=== PATIENT | male | born 1935 | race Caucasian/White ===

== ENCOUNTER 2017-10-06 02:31 | Emergency (ER) | payer MEDICARE ==
[~2017-10-06] VITALS: Ht 175.3 cm; Wt 91.8 kg
[~2017-10-06 02:31] MED LIST: ALTACE5 M1 OR; AMIODARONE200 MG OR; BABY ASPIRIN81 MG OR; CEFEPIME1 G1 IJ; CEPHALEXIN500 MG PO; CIPROFLOXACN500 MG OR; COREG3.125 MG OR; COREG6.25 MG PO; COUMADIN2.5 MG OR; COUMADIN2.5 MG PO; COUMADIN5 M1 PO; COUMADIN5 MG OR; FLOMAX0.4 M1 OR; HEPARIN10 UNITS/M IV; LASIX 40 MG TAB40 MG PO; LASIX40 MG OR; NORMAL SALIN0.9 % IV; PRAVASTATIN20 MG PO; SIMVASTATIN40 MG OR; VITAMIN D2000 UNI1 PO; WARFARIN2.5 MG OR; WARFARIN5 MG OR; ZOCOR20 MG PO; [UNRECOGNIZED DRUG - OTHER] IV
[2017-10-06] MEDS ORDERED: ENTRESTO 24-261 TAB PO (03:29)
[2017-10-06] MEDS ORDERED: ALLOPURINOL100 MG PO (03:30)
[2017-10-06 04:02] LABS: HEMATOCRIT 44.2 % (39.0-50.0); HEMOGLOBIN 14.5 g/dl (14.0-18.0); IMMATURE GRANULOCYTES 0.5 % (0.0-1.0); MEAN CELL VOLUME 93.8 fL CALC (80.0-100.0); MEAN CORPUSCULAR HGB 30.8 pG CALC (26.0-32.0); MEAN CORPUSCULAR HGB CONC 32.8 g/L CALC (32.0-36.0); RED BLOOD COUNT 4.71 mill/uL (4.70-6.10); RED CELL DISTRI WIDTH 14.3 % (11.5-15.5)
[2017-10-06 04:16] LABS: ALBUMIN 4.2 g/dL (3.2-5.0); BILIRUBIN, TOTAL 0.8 mg/dL (0.0-1.4); CALCIUM 9.6 mg/dL (8.4-10.2); CREATININE 1.4 mg/dL (0.7-1.3); POTASSIUM 4.2 mmol/l (3.5-5.1); TOTAL PROTEIN 6.5 g/dL (6.3-8.2)
[2017-10-06 04:21] LABS: ACT PARTIAL THROMBO TIME 39.6 SECONDS (20.0-32.5); INTERNATIONAL NORMALIZED RATIO 2.5 RATIO (0.7-1.3); PROTHROMBIN TIME 28.5 SECONDS (9.0-12.5)
[2017-10-06 05:00] VITALS: BP 125/63
[2017-10-06 06:04] LABS: URINE BILIRUBIN - DIPSTICK NEGATIVE (NEGATIVE); URINE BLOOD DIPSTICK NEGATIVE (NEGATIVE); URINE COLOR YELLOW; URINE GLUCOSE - DIPSTICK NEGATIVE (NEGATIVE); URINE KETONE NEGATIVE (NEGATIVE); URINE LEUK ESTERASE NEGATIVE (NEGATIVE); URINE NITRITE - DIPSTICK NEGATIVE (Negative); URINE PH 5.5 (4.5-8.0); URINE PROTEIN - DIPSTICK NEGATIVE (NEG-TRACE); URINE UROBILINOGEN - DIPSTICK 0.2 E.U./dL (0.2)
[2017-10-06 06:06] LABS: URINE CLARITY CLEAR
== END 2017-10-06 05:00 | disposition home or self-care (01) ==
LOC: ED 02:31
PROVIDERS: Emergency Medicine
DX: R07.89 Other chest pain (principal); I11.0 Hypertensive heart disease with heart failure; I50.9 Heart failure, unspecified; Z95.1 Presence of aortocoronary bypass graft; Z95.810 Presence of automatic (implantable) cardiac defibrillator

== ENCOUNTER 2018-06-04 09:58 | Emergency (ER) | payer MEDICARE ==
[~2018-06-04] VITALS: Ht 175.3 cm; Wt 92.7 kg
[~2018-06-04 09:58] MED LIST changes: +ALLOPURINOL100 MG PO; +ASPIRINCHW 81MG PO; -BABY ASPIRIN81 MG OR; +ENTRESTO 24-261 TAB PO
[2018-06-04] MEDS ORDERED: KEFLEX500 M1 PO (10:31)
[2018-06-04 10:50] VITALS: BP 107/53
[2018-06-05] MEDS ORDERED: ENTRESTO 24-261 TAB PO (20:48)
== END 2018-06-04 10:50 | disposition home or self-care (01) ==
LOC: ED 09:58
DX: S60.351A Superficial foreign body of right thumb, initial encounter (principal); W26.8XXA Contact with other sharp object(s), not elsewhere classified, initial encounter; Y93.89 Activity, other specified; Y92.009 Unspecified place in unspecified non-institutional (private) residence as the place of occurrence of the external cause

== ENCOUNTER 2018-06-05 19:14 | Inpatient (IN) | payer MEDICARE ==
[~2018-06-05] VITALS: Ht 172.7 cm; Wt 93.6 kg
[~2018-06-05 19:14] MED LIST changes: +KEFLEX500 M1 PO
--- NOTE | 2018-06-05 19:14 | NUR ---
PT TO ROOM VIA W/C. TRIAGED AT BEDSIDE.
[2018-06-05 19:38] LABS: HEMATOCRIT 47.1 % (39.0-50.0); HEMOGLOBIN 15.5 g/dl (14.0-18.0); IMMATURE GRANULOCYTES 0.6 % (0.0-5.0); MEAN CELL VOLUME 92.5 fL CALC (80.0-100.0); MEAN CORPUSCULAR HGB 30.5 pG CALC (26.0-32.0); MEAN CORPUSCULAR HGB CONC 32.9 g/L CALC (32.0-36.0); NEUT# 16.51 thou/uL (1.82-7.42); RED BLOOD COUNT 5.09 mill/uL (4.70-6.10)
--- NOTE | 2018-06-05 19:41 | NUR ---
LAB HERE TO COLLECT 2ND BLOOD CULTURES
--- NOTE | 2018-06-05 19:42 | NUR ---
XRAY AT BEDSIDE
--- NOTE | 2018-06-05 19:43 | NUR ---
PT TO RADIOLOGY
[2018-06-05 19:51] LABS: URINE BILIRUBIN - DIPSTICK NEGATIVE (NEGATIVE); URINE BLOOD DIPSTICK MODERATE (NEGATIVE); URINE COLOR YELLOW; URINE GLUCOSE - DIPSTICK NEGATIVE (NEGATIVE); URINE KETONE NEGATIVE (NEGATIVE); URINE LEUK ESTERASE NEGATIVE (NEGATIVE); URINE NITRITE - DIPSTICK NEGATIVE (Negative); URINE PROTEIN - DIPSTICK 30 mg/dL (NEG-TRACE); URINE SPECIFIC GRAVITY 1.015; URINE UROBILINOGEN - DIPSTICK 0.2 E.U./dL (0.2)
[2018-06-05 19:51] LABS: BILIRUBIN, TOTAL 1.2 mg/dL (0.0-1.4); C-REACTIVE PROTEIN 2.2 mg/dL (0-0.9); CREATININE 1.4 mg/dL (0.7-1.3); POTASSIUM 4.2 mmol/l (3.5-5.1)
[2018-06-05 19:55] LABS: INTERNATIONAL NORMALIZED RATIO 2.6 RATIO (0.7-1.3); PROTHROMBIN TIME 29.1 SECONDS (9.0-12.5)
[2018-06-05 19:57] LABS: ALBUMIN 4.8 g/dL (3.2-5.0); TOTAL PROTEIN 8.1 g/dL (6.3-8.2)
--- NOTE | 2018-06-05 19:58 | NUR ---
RETURNED FROM XRAY
[2018-06-05 19:59] LABS: INFLUENZA A NONE DETECTED (NONE DETECT); INFLUENZA B NONE DETECTED (NONE DETECT)
[2018-06-05 19:59] LABS: URINE CLARITY SL CLOUDY
[2018-06-05 20:07] LABS: URINE BACTERIA FEW hpf; URINE MUCUS FEW hpf (NONE-FEW); URINE SQUAMOUS EPITHELIAL CELL MANY EPI/hpf (0-FEW)
--- NOTE | 2018-06-05 20:38 | NUR ---
REPORT TO JOSE DE JESUS/Mazin
[2018-06-05] MEDS ORDERED: ENTRESTO 24-261 TAB PO (20:48)
--- NOTE | 2018-06-05 20:51 | NUR ---
[facility]... HAD SOME UPDATES.
[2018-06-05 21:00] VITALS: BP 107/66
--- NOTE | 2018-06-05 21:00 | NUR ---
PT ARRIVED TO THE FLOOR VIA STRETCHER ACCOMPANIED BY ED NURSE AND FAMILY MEMBERS. PT DENIES ANY PAIN/N/V OR SOB AT THIS TIME. PT SELF AMBULATED W/STANDBY ASSISTANCE TO STANDING SCALE AND BED. V/S ASSESSED, TEMP IS 100.0 AT THIS TIME. ROOM COOLED AND ICE PACKS PROVIDED. POC DISCUSSED WITH PT AND FAMILY. WILL FOLLOW-UP WITH ASSESSMENT AND NOTIFY PHYSICIAN OF PT'S ARRIVAL TO FLOOR.
--- NOTE | 2018-06-05 21:05 | NUR ---
REPORT TO FLOOR VIA STRETCHER/MONITOR. ROCEPHIN INFUSING VIA PUMP. FAMILY X 3 AT BEDSIDE. BELONGINGS BAG TAKEN BY .
--- NOTE | 2018-06-05 22:00 | NUR ---
PT ASSESSED, LUNG SOUNDS ARE CLEAR, PT LOCX4, SMALL CUT ON LEFT THUMB PT STATES WAS FROM A FISHHOOK REMOVAL IN OUR ED YESTERDAY. NO NOTED EDEMA, REPORTS NORMAL BM TODAY AND DENIES DIFFICULTY URINATING. ABD IS SOFT/NON-TENDER WITH ACTIVE BOWEL SOUNDS, NEURO'S INTACT, PT REPORTS CATERACTS REMOVED. PT.ENCOURAGED TO CALL FOR ANY ASSISTANCE IF NEEDS TO AMBULATE, PO FLUIDS PROVIDED AND REINFORCEMENT TO CALL SYSTEM REVIEWED WITH PT.
[2018-06-05 23:06] VITALS: BP 99/54
--- NOTE | 2018-06-05 23:18 | NUR ---
PT.TEMP 98.8, BLANKET RETURNED, PT C/O BEING COLD. BP 96/54,HR72. IV FLUIDS ADMINISTERED AT THIS TIME.
--- NOTE | 2018-06-05 23:36 | NUR ---
PT.MEDICATED W/IV ANTIBIOTIC THERAPY ORDERED. URINAL EMPTIED OF 100CC OF CLEAR YELLOW URINE, PT DENIES ANY PAIN FOR FEELING OF PALPATATIONS AT THIS TIME. DENIES N/V OR DIZZINESS, DENIES SOB. WILL CONTINUE TO MONITOR AND PT INSTRUCTED TO CALL IF ANY NEEDS ARISE OR IF HE NEEDS TO GET UP.
--- NOTE | 2018-06-06 01:35 | NUR ---
PT MEDICATED WITH IV ANTIBIOTIC THERAPY. PT WAS SLEEPING, BUT AWOKE TO MY ENTERING ROOM. NO S/S OF DISTRESS NOTED, DENIES ANY NEEDS AT THIS TIME. CALL LIGHT W/IN REACH.
[2018-06-06 04:25] VITALS: BP 95/50
--- NOTE | 2018-06-06 04:25 | NUR ---
PT.WAS SLEEPING SOUNDLY WHEN I ENTERED THE ROOM, BUT AWOKE TO MY VOICE. V/S ASSESSED AND URINAL EMPTIED OF 150CC DARK YELLOW URINE. PT REPORTS "FEELING BETTER AND READY TO GO FISHING." NO S/S OF DISTRESS NOTED AT THIS TIME. SPUTUM SAMPLE PROVIDED FROM PT AND SENT TO LAB. DENIES ANY OTHER NEEDS.
[2018-06-06 06:17] LABS: HEMOGLOBIN 13.9 g/dl (14.0-18.0); MEAN CELL VOLUME 92.5 fL CALC (80.0-100.0); MEAN CORPUSCULAR HGB 30.6 pG CALC (26.0-32.0); MEAN CORPUSCULAR HGB CONC 33.1 g/L CALC (32.0-36.0); RED BLOOD COUNT 4.54 mill/uL (4.70-6.10); RED CELL DISTRI WIDTH 15.3 % (11.5-15.5)
[2018-06-06 06:24] LABS: ANION GAP 12 (6-22 (CALC)); BUN 31 mg/dL (8-23); BUN/CREATININE RATIO 25 (12-20 (CALC)); CARBON DIOXIDE 25 mmol/l (22-30); CHLORIDE 106 mmol/l (95-108); CREATININE 1.3 mg/dL (0.7-1.3); GFR 53 ML/MIN (>=60 (CALC)); GFR FOR AFR.AMER. > 60 ML/MIN (>=60 (CALC)); INTERNATIONAL NORMALIZED RATIO 2.9 RATIO (0.7-1.3); POTASSIUM 3.8 mmol/l (3.5-5.1); PROTHROMBIN TIME 33.5 SECONDS (9.0-12.5); SODIUM 139 mmol/l (137-146)
--- NOTE | 2018-06-06 07:27 | NUR ---
SHIFT CHANGE REPORT FROM JOHNNA DELA CRUZ AWAKE ALERT AND ORIENTED RESTING IN BED, NO C/O DISCOMFORT, IVF INFUSING, TELE MONITOR IN PLACE, CALL SUERO IN REACH.
--- NOTE | 2018-06-06 07:28 | NUR ---
Vancomycin consult Age: 82 years Weight: 91.5 kg Height: 172.7 cm Gender: Male SCR: 1.3 mg/dl Dosing weight: 77.64 kg IBW: 68.40 kg CRCL (ml/min): 40.9 Flako (hr-1): 0.038 Half-life (hrs): 18.24 Vd (liters): 64.05 (factor: 0.7 L/kg) Vancomycin 1250 mg Q24H @2100 to produce a predicted peak of 31 mcg/ml and a predicted trough of 14 mcg/ml based on (Population-based pharmacokinetic analysis). Trough on 06/08 @ 2029.
[2018-06-06 07:54] VITALS: BP 101/54
--- NOTE | 2018-06-06 10:48 | NUR ---
CLARK FROM DIETARY VISITED AND EDUCATED PT ON THERAPEUTIC DIET, PT DID NOT LIKE BREAKFAST AND FAMILY BROUGHT IN FOOD FOR HIM, HE REFUSES EDUCATION ON CARDIAC DIET AND STATES HE IS 82 YRS OLD AND WANTS TO EAT WHATEVER HE LIKES, WILL CONTINUE TO MONITOR.
--- NOTE | 2018-06-06 12:15 | NUR ---
RELAXING IN BED AT THIS TIME, REFUSED MEAL, FAMILY REITERATED PT IS 82 YRS OLD AND THEY WILL NOT DENY HIM OF HIS MEAL REQUESTS, WILL CONTINUE TO MONITOR.
--- NOTE | 2018-06-06 12:53 | NUR ---
SLEEPING AT THIS TIME, SPOUSE AT BEDSIDE.
[2018-06-06 14:19] VITALS: BP 105/59
--- NOTE | 2018-06-06 15:32 | NUR ---
RESTING IN BED AT THIS TIME, REQUEST ORAL FLUIDS, SPOUSE AT BEDSIDE, CALL SUERO IN REACH.
[2018-06-06 17:24] VITALS: BP 111/65
--- NOTE | 2018-06-06 19:05 | NUR ---
PT RESTING IN BED WATCHING TV. PT ALERT AND ORIENTED. PT DENIES PAIN. RESP EVEN AND UNLABORED. TELE ON. LUNGS CLEAR BILAT. ABD SOFT, ACTIVE BOWEL SOUNDS. IV LAC PATENT; FLUSHED WITHOUT DIFFICULTY. SAFETY PRECAUTIONS REINFORCED. FREQUENT ROUNDS MADE. CALL LIGHT WITHIN REACH.
[2018-06-06 19:15] VITALS: BP 110/63
[2018-06-07 00:14] VITALS: BP 111/70
--- NOTE | 2018-06-07 00:18 | NUR ---
PT RESTING IN BED WATCHING TV. RESP EVEN AND UNLABORED. PT DENIES PAIN. TELE ON. CALL LIGHT WITHIN REACH.
--- NOTE | 2018-06-07 04:20 | NUR ---
ASSESSMENT UNCHANGED, RESP EVEN AND UNLABORED. NO DISTRESS NOTED. TELE ON. CALL LIGHT WITHIN REACH.
[2018-06-07 04:36] VITALS: BP 117/68
[2018-06-07 05:42] LABS: INTERNATIONAL NORMALIZED RATIO 2.8 RATIO (0.7-1.3); PROTHROMBIN TIME 32.5 SECONDS (9.0-12.5)
--- NOTE | 2018-06-07 07:00 | NUR ---
SHIFT CHANGE REPORT FROM JOHNNA JOHANSNE AWAKE ALERT AND ORIENTED, NO C/O DISCOMFORT, TELE MONITOR IN PLACE, CALL SUERO IN REACH.
[2018-06-07 07:53] VITALS: BP 114/67
[2018-06-07 08:25] VITALS: BP 114/67
[2018-06-07 11:20] LABS: HEMATOCRIT 40.4 % (39.0-50.0); MEAN CELL VOLUME 95.1 fL CALC (80.0-100.0); MEAN CORPUSCULAR HGB 30.6 pG CALC (26.0-32.0); MEAN CORPUSCULAR HGB CONC 32.2 g/L CALC (32.0-36.0); RED BLOOD COUNT 4.25 mill/uL (4.70-6.10); RED CELL DISTRI WIDTH 15.9 % (11.5-15.5)
[2018-06-07 11:35] LABS: ANION GAP 15 (6-22 (CALC)); BUN 28 mg/dL (8-23); BUN/CREATININE RATIO 22 (12-20 (CALC)); CARBON DIOXIDE 24 mmol/l (22-30); CHLORIDE 104 mmol/l (95-108); CREATININE 1.3 mg/dL (0.7-1.3); GFR 53 ML/MIN (>=60 (CALC)); GFR FOR AFR.AMER. > 60 ML/MIN (>=60 (CALC)); SODIUM 138 mmol/l (137-146)
[2018-06-07] MEDS ORDERED: Levaquin PO (11:56)
--- NOTE | 2018-06-07 11:58 | NUR ---
SITTING UP IN RECLINER WITH FAMILY VISITING, ATE MEAL, ANXIOUS TO GO HOME, ADVISE WILL PROCESS ORDERS IN TIMELY MANNER, STATED UNDERSTANDING.
--- NOTE | 2018-06-07 12:20 | NUR ---
Discharge instructions given. Patient verbalizes understanding of same. Discharged in good condition via Wheelchair to Home with family. All belongings sent with pt.
== END 2018-06-07 12:15 | disposition home or self-care (01) | DRG 815 ==
LOC: ED 19:14 → ED-I 19:45 → ED 20:23 → MS2 20:24
PROVIDERS: Family Medicine; ADMIT Internal Medicine; ATTEND Internal Medicine
DX: D72.829 Elevated white blood cell count, unspecified (principal); I13.0 Hypertensive heart and chronic kidney disease with heart failure and stage 1 through stage 4 chronic kidney disease, or unspecified chronic kidney disease; R50.9 Fever, unspecified; E86.0 Dehydration; I50.9 Heart failure, unspecified; N18.3 Chronic kidney disease, stage 3 (moderate); I25.5 Ischemic cardiomyopathy; E78.5 Hyperlipidemia, unspecified; I48.91 Unspecified atrial fibrillation; M10.9 Gout, unspecified; I25.10 Atherosclerotic heart disease of native coronary artery without angina pectoris; S61.031D Puncture wound without foreign body of right thumb without damage to nail, subsequent encounter; L08.9 Local infection of the skin and subcutaneous tissue, unspecified; X58.XXXD Exposure to other specified factors, subsequent encounter; Z95.1 Presence of aortocoronary bypass graft; Z95.810 Presence of automatic (implantable) cardiac defibrillator; Z79.01 Long term (current) use of anticoagulants; Z87.440 Personal history of urinary (tract) infections
CPT/HCPCS: J3370

== ENCOUNTER 2018-10-16 06:29 | Inpatient (IN) | payer MEDICARE ==
[~2018-10-16] VITALS: Ht 170.2 cm; Wt 96.6 kg
[~2018-10-16 06:29] MED LIST changes: +Levaquin PO
[2018-10-16 07:32] LABS: HEMATOCRIT 38.4 % (39.0-50.0); HEMOGLOBIN 12.3 g/dl (14.0-18.0); IMMATURE GRANULOCYTES 1.1 % (0.0-5.0); MEAN CELL VOLUME 93.7 fL CALC (80.0-100.0); NEUT# 12.5 thou/uL (1.82-7.42); RED BLOOD COUNT 4.1 mill/uL (4.70-6.10); RED CELL DISTRI WIDTH 15.2 % (11.5-15.5)
[2018-10-16] MEDS ORDERED: COUMADIN5 MG PO (07:40)
[2018-10-16 07:52] LABS: BILIRUBIN, TOTAL 0.9 mg/dL (0.0-1.4); CREATININE 1.6 mg/dL (0.7-1.3); TOTAL PROTEIN 5.6 g/dL (6.3-8.2)
[2018-10-16 07:53] LABS: POTASSIUM 3.3 mmol/l (3.5-5.1)
[2018-10-16 08:40] LABS: URINE BILIRUBIN - DIPSTICK NEGATIVE (NEGATIVE); URINE BLOOD DIPSTICK NEGATIVE (NEGATIVE); URINE COLOR YELLOW; URINE GLUCOSE - DIPSTICK NEGATIVE (NEGATIVE); URINE KETONE TRACE mg/dL (NEGATIVE); URINE LEUK ESTERASE NEGATIVE (NEGATIVE); URINE NITRITE - DIPSTICK NEGATIVE (Negative); URINE PH 5.5 (4.5-8.0); URINE PROTEIN - DIPSTICK 30 mg/dL (NEG-TRACE)
[2018-10-16 08:41] LABS: URINE CLARITY CLOUDY
[2018-10-16 08:48] LABS: URINE COARSE GRANULAR CAST MODERATE lpf; URINE FINE GRAN CAST MODERATE lpf; URINE MUCUS MODERATE hpf (NONE-FEW); URINE RBC 0-2 RBC/hpf (0-5); URINE SQUAMOUS EPITHELIAL CELL MANY EPI/hpf (0-FEW)
[2018-10-16 11:17] VITALS: BP 93/54
[2018-10-16 15:00] VITALS: BP 96/43
[2018-10-16 16:11] VITALS: BP 112/63
[2018-10-16 19:52] VITALS: BP 119/56
[2018-10-16 23:56] VITALS: BP 93/53
[2018-10-17] VITALS (13 sets, daily range): BP systolic 88–134; BP diastolic 40–69
[2018-10-17 05:31] LABS: HEMATOCRIT 39.6 % (39.0-50.0); HEMOGLOBIN 12.7 g/dl (14.0-18.0); IMMATURE GRANULOCYTES 1.1 % (0.0-5.0); MEAN CELL VOLUME 94.3 fL CALC (80.0-100.0); MEAN CORPUSCULAR HGB 30.2 pG CALC (26.0-32.0); MEAN CORPUSCULAR HGB CONC 32.1 g/L CALC (32.0-36.0); NEUT# 13.73 thou/uL (1.82-7.42); RED BLOOD COUNT 4.2 mill/uL (4.70-6.10); RED CELL DISTRI WIDTH 15.2 % (11.5-15.5)
[2018-10-17 05:52] LABS: INTERNATIONAL NORMALIZED RATIO 6.2 RATIO (0.7-1.3); PROTHROMBIN TIME 63.7 SECONDS (9.0-12.5)
[2018-10-17 07:04] LABS: ALBUMIN 2.9 g/dL (3.2-5.0); ALKALINE PHOSPHATASE 93 u/l (38-126); ANION GAP 12 (6-22 (CALC)); BILIRUBIN, TOTAL 0.8 mg/dL (0.0-1.4); BUN 59 mg/dL (8-23); BUN/CREATININE RATIO 45 (12-20 (CALC)); CARBON DIOXIDE 29 mmol/l (22-30); CHLORIDE 101 mmol/l (95-108); CREATININE 1.3 mg/dL (0.7-1.3); GFR 53 ML/MIN (>=60 (CALC)); GFR FOR AFR.AMER. > 60 ML/MIN (>=60 (CALC)); POTASSIUM 3.6 mmol/l (3.5-5.1); SGOT/AST 33 u/l (19-48); SODIUM 139 mmol/l (137-146); TOTAL PROTEIN 5.5 g/dL (6.3-8.2)
[2018-10-17 07:29] LABS: MAGNESIUM 2.6 mg/dL (1.6-2.3)
[2018-10-18 00:22] VITALS: BP 131/67
[2018-10-18 04:57] VITALS: BP 139/67
[2018-10-18 06:14] LABS: HEMATOCRIT 37.8 % (39.0-50.0); HEMOGLOBIN 12.2 g/dl (14.0-18.0); IMMATURE GRANULOCYTES 2.2 % (0.0-5.0); MEAN CORPUSCULAR HGB 30.3 pG CALC (26.0-32.0); MEAN CORPUSCULAR HGB CONC 32.3 g/L CALC (32.0-36.0); NEUT# 15.03 thou/uL (1.82-7.42); RED BLOOD COUNT 4.02 mill/uL (4.70-6.10)
[2018-10-18 06:53] LABS: INTERNATIONAL NORMALIZED RATIO 2.7 RATIO (0.7-1.3); PROTHROMBIN TIME 28.4 SECONDS (9.0-12.5)
[2018-10-18 06:56] LABS: ALBUMIN 3.1 g/dL (3.2-5.0); ALKALINE PHOSPHATASE 95 u/l (38-126); ANION GAP 14 (6-22 (CALC)); BILIRUBIN, TOTAL 0.8 mg/dL (0.0-1.4); BUN 62 mg/dL (8-23); BUN/CREATININE RATIO 54 (12-20 (CALC)); CARBON DIOXIDE 30 mmol/l (22-30); CHLORIDE 99 mmol/l (95-108); CREATININE 1.2 mg/dL (0.7-1.3); GFR 58 ML/MIN (>=60 (CALC)); GFR FOR AFR.AMER. > 60 ML/MIN (>=60 (CALC)); MAGNESIUM 2.7 mg/dL (1.6-2.3); POTASSIUM 4.2 mmol/l (3.5-5.1); SGOT/AST 35 u/l (19-48); SODIUM 139 mmol/l (137-146); TOTAL PROTEIN 5.7 g/dL (6.3-8.2)
[2018-10-18 11:54] VITALS: BP 121/60
[2018-10-18 15:45] VITALS: BP 109/56
[2018-10-18 20:09] VITALS: BP 143/61
[2018-10-18 23:59] VITALS: BP 134/71
[2018-10-19 05:07] VITALS: BP 118/72
[2018-10-19 07:03] LABS: HEMATOCRIT 41.3 % (39.0-50.0); IMMATURE GRANULOCYTES 2.8 % (0.0-5.0); MEAN CELL VOLUME 95.6 fL CALC (80.0-100.0); MEAN CORPUSCULAR HGB 30.1 pG CALC (26.0-32.0); MEAN CORPUSCULAR HGB CONC 31.5 g/L CALC (32.0-36.0); NEUT# 15.05 thou/uL (1.82-7.42); RED BLOOD COUNT 4.32 mill/uL (4.70-6.10); RED CELL DISTRI WIDTH 15.1 % (11.5-15.5)
[2018-10-19 07:18] LABS: ALBUMIN 3.1 g/dL (3.2-5.0); ALKALINE PHOSPHATASE 94 u/l (38-126); ANION GAP 11 (6-22 (CALC)); BILIRUBIN, TOTAL 0.7 mg/dL (0.0-1.4); BUN 55 mg/dL (8-23); BUN/CREATININE RATIO 47 (12-20 (CALC)); CARBON DIOXIDE 34 mmol/l (22-30); CHLORIDE 99 mmol/l (95-108); CREATININE 1.2 mg/dL (0.7-1.3); GFR 58 ML/MIN (>=60 (CALC)); GFR FOR AFR.AMER. > 60 ML/MIN (>=60 (CALC)); MAGNESIUM 2.9 mg/dL (1.6-2.3); POTASSIUM 4.5 mmol/l (3.5-5.1); SGOT/AST 26 u/l (19-48); SODIUM 140 mmol/l (137-146); TOTAL PROTEIN 5.8 g/dL (6.3-8.2)
[2018-10-19 07:37] LABS: INTERNATIONAL NORMALIZED RATIO 2.2 RATIO (0.7-1.3); PROTHROMBIN TIME 23.1 SECONDS (9.0-12.5)
[2018-10-19 07:58] VITALS: BP 127/73
[2018-10-19 12:10] VITALS: BP 131/71
[2018-10-19 16:17] VITALS: BP 141/47
[2018-10-19 20:00] VITALS: BP 144/78
[2018-10-20 00:38] VITALS: BP 134/70
[2018-10-20 05:35] VITALS: BP 143/63
[2018-10-20 06:02] LABS: INTERNATIONAL NORMALIZED RATIO 1.9 RATIO (0.7-1.3)
[2018-10-20 06:10] LABS: HEMATOCRIT 46.2 % (39.0-50.0); HEMOGLOBIN 14.5 g/dl (14.0-18.0); IMMATURE GRANULOCYTES 3.5 % (0.0-5.0); MEAN CELL VOLUME 96.7 fL CALC (80.0-100.0); MEAN CORPUSCULAR HGB 30.3 pG CALC (26.0-32.0); MEAN CORPUSCULAR HGB CONC 31.4 g/L CALC (32.0-36.0); NEUT# 16.06 thou/uL (1.82-7.42); RED BLOOD COUNT 4.78 mill/uL (4.70-6.10); RED CELL DISTRI WIDTH 14.8 % (11.5-15.5)
[2018-10-20 06:24] LABS: ALBUMIN 3.3 g/dL (3.2-5.0); ALKALINE PHOSPHATASE 102 u/l (38-126); ANION GAP 12 (6-22 (CALC)); BILIRUBIN, TOTAL 0.8 mg/dL (0.0-1.4); BUN 52 mg/dL (8-23); BUN/CREATININE RATIO 50 (12-20 (CALC)); CARBON DIOXIDE 34 mmol/l (22-30); CHLORIDE 101 mmol/l (95-108); GFR > 60 ML/MIN (>=60 (CALC)); GFR FOR AFR.AMER. > 60 ML/MIN (>=60 (CALC)); POTASSIUM 4.6 mmol/l (3.5-5.1); SODIUM 142 mmol/l (137-146); TOTAL PROTEIN 6.2 g/dL (6.3-8.2)
[2018-10-20 06:37] LABS: SGOT/AST 55 u/l (19-48)
[2018-10-20 08:32] VITALS: BP 119/70
[2018-10-20 11:35] VITALS: BP 119/61
[2018-10-20 15:20] VITALS: BP 127/60
[2018-10-20 20:00] VITALS: BP 139/75
[2018-10-21] VITALS: BP 136/63
[2018-10-21 04:30] VITALS: BP 134/66
[2018-10-21 05:08] LABS: HEMATOCRIT 43.9 % (39.0-50.0); HEMOGLOBIN 13.9 g/dl (14.0-18.0); IMMATURE GRANULOCYTES 3.6 % (0.0-5.0); MEAN CELL VOLUME 95.4 fL CALC (80.0-100.0); MEAN CORPUSCULAR HGB 30.2 pG CALC (26.0-32.0); MEAN CORPUSCULAR HGB CONC 31.7 g/L CALC (32.0-36.0); NEUT# 20.75 thou/uL (1.82-7.42); RED BLOOD COUNT 4.6 mill/uL (4.70-6.10); RED CELL DISTRI WIDTH 14.8 % (11.5-15.5)
[2018-10-21 05:18] LABS: INTERNATIONAL NORMALIZED RATIO 1.5 RATIO (0.7-1.3); PROTHROMBIN TIME 16.1 SECONDS (9.0-12.5)
[2018-10-21 05:19] LABS: ALBUMIN 3.1 g/dL (3.2-5.0); ALKALINE PHOSPHATASE 87 u/l (38-126); ANION GAP 10 (6-22 (CALC)); BILIRUBIN, TOTAL 0.9 mg/dL (0.0-1.4); BUN 49 mg/dL (8-23); BUN/CREATININE RATIO 52 (12-20 (CALC)); CARBON DIOXIDE 34 mmol/l (22-30); CHLORIDE 103 mmol/l (95-108); GFR > 60 ML/MIN (>=60 (CALC)); GFR FOR AFR.AMER. > 60 ML/MIN (>=60 (CALC)); MAGNESIUM 2.9 mg/dL (1.6-2.3); SGOT/AST 47 u/l (19-48); SODIUM 142 mmol/l (137-146); TOTAL PROTEIN 5.8 g/dL (6.3-8.2)
[2018-10-21 05:26] LABS: POTASSIUM 5.2 mmol/l (3.5-5.1)
[2018-10-21 11:27] VITALS: BP 133/57
[2018-10-21 19:30] VITALS: BP 144/73
[2018-10-22 04:15] VITALS: BP 123/76
[2018-10-22 06:41] LABS: INTERNATIONAL NORMALIZED RATIO 1.3 RATIO (0.7-1.3); PROTHROMBIN TIME 13.7 SECONDS (9.0-12.5)
[2018-10-22 08:00] VITALS: BP 140/72
[2018-10-22 16:30] VITALS: BP 149/67
[2018-10-22 19:00] VITALS: BP 135/64
[2018-10-23 04:45] VITALS: BP 129/69
[2018-10-23 05:59] LABS: INTERNATIONAL NORMALIZED RATIO 1.3 RATIO (0.7-1.3); PROTHROMBIN TIME 13.8 SECONDS (9.0-12.5)
[2018-10-23 06:03] LABS: BUN 42 mg/dL (8-23); BUN/CREATININE RATIO 50 (12-20 (CALC)); CARBON DIOXIDE 35 mmol/l (22-30); CHLORIDE 102 mmol/l (95-108); CREATININE 0.8 mg/dL (0.7-1.3); GFR > 60 ML/MIN (>=60 (CALC)); GFR FOR AFR.AMER. > 60 ML/MIN (>=60 (CALC)); SODIUM 140 mmol/l (137-146)
[2018-10-23 06:04] LABS: HEMATOCRIT 39.9 % (39.0-50.0); HEMOGLOBIN 12.5 g/dl (14.0-18.0); MEAN CELL VOLUME 95.7 fL CALC (80.0-100.0); MEAN CORPUSCULAR HGB CONC 31.3 g/L CALC (32.0-36.0); RED BLOOD COUNT 4.17 mill/uL (4.70-6.10); RED CELL DISTRI WIDTH 15.1 % (11.5-15.5)
[2018-10-23 06:05] LABS: ANION GAP 9 (6-22 (CALC)); POTASSIUM 5.8 mmol/l (3.5-5.1)
[2018-10-23 08:00] VITALS: BP 125/59
[2018-10-23 08:29] VITALS: BP 129/69
[2018-10-23] MEDS ORDERED: LEVAQUIN500 MG PO (11:07)
[2018-10-23] MEDS ORDERED: IPRATROPIU0.5 MG/3 M IN (11:07)
[2018-10-23] MEDS ORDERED: NEBULIZER COMPRESSOR (11:08)
[2018-10-23] MEDS ORDERED: MEDDOSEPAK PO (11:13)
[2018-10-23] MEDS ORDERED: PROAIR HFA IN (13:18)
== END 2018-10-23 13:28 | disposition home health service (06) | DRG 194 ==
LOC: ED 06:29 → ED-I 08:23 → ED 08:42 → ED-I 08:43 → MS2 08:43
PROVIDERS: Emergency Medicine; Internal Medicine; ADMIT Internal Medicine Nephrology; ATTEND Internal Medicine Nephrology
PROC: 30233K1 Transfusion of Nonautologous Frozen Plasma into Peripheral Vein, Percutaneous Approach (ICD-10-PCS; principal; 2018-10-17)
PROC: 30233K1 Transfusion of Nonautologous Frozen Plasma into Peripheral Vein, Percutaneous Approach (ICD-10-PCS; 2018-10-17)
DX: J18.9 Pneumonia, unspecified organism (principal); I13.0 Hypertensive heart and chronic kidney disease with heart failure and stage 1 through stage 4 chronic kidney disease, or unspecified chronic kidney disease; I50.22 Chronic systolic (congestive) heart failure; J91.8 Pleural effusion in other conditions classified elsewhere; R04.2 Hemoptysis; N18.3 Chronic kidney disease, stage 3 (moderate); I48.91 Unspecified atrial fibrillation; I25.10 Atherosclerotic heart disease of native coronary artery without angina pectoris; I95.9 Hypotension, unspecified; I25.5 Ischemic cardiomyopathy; E78.5 Hyperlipidemia, unspecified; M10.9 Gout, unspecified; Z79.01 Long term (current) use of anticoagulants; Z95.1 Presence of aortocoronary bypass graft; Z95.810 Presence of automatic (implantable) cardiac defibrillator; Z87.440 Personal history of urinary (tract) infections

== ENCOUNTER 2018-12-08 09:04 | Emergency (ER) | payer MEDICARE ==
[~2018-12-08] VITALS: Ht 170.2 cm; Wt 93.0 kg
[~2018-12-08 09:04] MED LIST changes: +COUMADIN5 MG PO; +IPRATROPIU0.5 MG/3 M IN; +LEVAQUIN500 MG PO; +MEDDOSEPAK PO; +NEBULIZER COMPRESSOR; +PROAIR HFA IN
[2018-12-08 09:45] VITALS: BP 123/61
== END 2018-12-08 09:47 | disposition home or self-care (01) ==
LOC: ED 09:04
DX: S00.03XA Contusion of scalp, initial encounter (principal); V48.4XXA Person boarding or alighting a car injured in noncollision transport accident, initial encounter; Y93.89 Activity, other specified; Y92.007 Garden or yard of unspecified non-institutional (private) residence as the place of occurrence of the external cause

== ENCOUNTER 2019-01-01 17:58 | Emergency (ER) | payer MEDICARE ==
[~2019-01-01] VITALS: Ht 170.2 cm; Wt 90.9 kg
[2019-01-01 18:18] VITALS: BP 139/77
[2019-01-01] MEDS ORDERED: LASIX 20 MG TAB20 MG PO (18:41)
[2019-01-01 18:53] LABS: HEMATOCRIT 36.3 % (39.0-50.0); HEMOGLOBIN 11.8 g/dl (14.0-18.0); IMMATURE GRANULOCYTES 0.4 % (0.0-5.0); MEAN CELL VOLUME 94.5 fL CALC (80.0-100.0); MEAN CORPUSCULAR HGB 30.7 pG CALC (26.0-32.0); MEAN CORPUSCULAR HGB CONC 32.5 g/L CALC (32.0-36.0); NEUT# 5.58 thou/uL (1.82-7.42); RED BLOOD COUNT 3.84 mill/uL (4.70-6.10); RED CELL DISTRI WIDTH 16.4 % (11.5-15.5)
[2019-01-01 19:05] LABS: ANION GAP 14 (6-22 (CALC)); BUN 21 mg/dL (8-23); BUN/CREATININE RATIO 22 (12-20 (CALC)); CARBON DIOXIDE 27 mmol/l (22-30); CHLORIDE 98 mmol/l (95-108); GFR > 60 ML/MIN (>=60 (CALC)); GFR FOR AFR.AMER. > 60 ML/MIN (>=60 (CALC)); POTASSIUM 4.3 mmol/l (3.5-5.1); SODIUM 134 mmol/l (137-146)
[2019-01-01 19:13] LABS: INTERNATIONAL NORMALIZED RATIO 1.6 RATIO (0.7-1.3); PROTHROMBIN TIME 16.5 SECONDS (9.0-12.5)
== END 2019-01-01 19:37 | disposition short-term general hospital (02) ==
LOC: ED 17:58
PROVIDERS: Family Medicine
DX: I62.01 Nontraumatic acute subdural hemorrhage (principal); I62.03 Nontraumatic chronic subdural hemorrhage; I13.0 Hypertensive heart and chronic kidney disease with heart failure and stage 1 through stage 4 chronic kidney disease, or unspecified chronic kidney disease; I50.9 Heart failure, unspecified; N18.9 Chronic kidney disease, unspecified; I25.10 Atherosclerotic heart disease of native coronary artery without angina pectoris; M10.9 Gout, unspecified; Z95.1 Presence of aortocoronary bypass graft; Z95.0 Presence of cardiac pacemaker; Z79.01 Long term (current) use of anticoagulants
CPT/HCPCS: J1953

== ENCOUNTER → 2019-01-16 | Outpatient (REF) | payer MEDICARE ==
[~2019-01-16] MED LIST changes: +LASIX 20 MG TAB20 MG PO
== END | disposition home or self-care (01) ==
LOC: CT 11:30
PROVIDERS: ATTEND Nurse Practitioner Family
DX: I62.00 Nontraumatic subdural hemorrhage, unspecified (principal)

== ENCOUNTER → 2019-01-16 | Outpatient (REF) | END | disposition home or self-care (01) | DRG 305 | LOC: LAB 11:54 | PROVIDERS: ATTEND Internal Medicine | DX: I10 Essential (primary) hypertension (principal); E78.49 Other hyperlipidemia ==

== ENCOUNTER → 2019-01-27 | Outpatient (REF) | END | disposition home or self-care (01) | DRG 293 | LOC: LAB 08:33 | PROVIDERS: ATTEND Internal Medicine | DX: I50.22 Chronic systolic (congestive) heart failure (principal); N18.3 Chronic kidney disease, stage 3 (moderate) ==

== ENCOUNTER 2019-08-04 12:02 | Observation (INO) | payer MEDICARE ==
[~2019-08-04] VITALS: Ht 170.2 cm; Wt 90.6 kg
[~2019-08-04 12:02] MED LIST changes: -LASIX 20 MG TAB20 MG PO; -PRAVASTATIN20 MG PO; +PRAVASTATIN40 MG PO
--- NOTE | 2019-08-04 12:03 | NUR ---
Pt to room # 12 via W/C accompanied by family for bedside triage
--- NOTE | 2019-08-04 12:29 | NUR ---
FAMILY AT BEDSIDE OFTEN ANSWERING FOR PATIENT, EDUCATED REGARDING PLAN OF CARE, INCLUDING LINE, LAB WORK, AND TESTING, VERBALIZES UNDERSTANDING, ALL QUESTIONS ANSWERED.
[2019-08-04 13:03] LABS: HEMATOCRIT 42.5 % (39.0-50.0); HEMOGLOBIN 13.6 g/dl (14.0-18.0); IMMATURE GRANULOCYTES 0.6 % (0.0-5.0); MEAN CELL VOLUME 93.4 fL CALC (80.0-100.0); MEAN CORPUSCULAR HGB 29.9 pG CALC (26.0-32.0); NEUT# 4.26 thou/uL (1.82-7.42); RED BLOOD COUNT 4.55 mill/uL (4.70-6.10); RED CELL DISTRI WIDTH 14.5 % (11.5-15.5)
[2019-08-04 13:25] LABS: ANION GAP 14 (6-22 (CALC)); BUN 25 mg/dL (8-23); BUN/CREATININE RATIO 25 (12-20 (CALC)); CARBON DIOXIDE 29 mmol/l (22-30); CHLORIDE 101 mmol/l (95-108); GFR > 60 ML/MIN (>=60 (CALC)); GFR FOR AFR.AMER. > 60 ML/MIN (>=60 (CALC)); POTASSIUM 4.5 mmol/l (3.5-5.1); SODIUM 140 mmol/l (137-146)
--- NOTE | 2019-08-04 13:35 | NUR ---
PT RESTING IN STRECTHER AT BEDSIDE, PT AWARE OF PLANNED ADMISSION FOR C.P. OFFERS NO NEW COMPLAINTS, CALL SUERO WITHIN REACH
--- NOTE | 2019-08-04 14:01 | NUR ---
PT RESTING IN STRETCHER NO S/S OF DISTRESS OR DISCOMFORT, SAFETY MEASURES REINFORCED, CALL SUERO WITHIN REACH, WILL CONTINUE TO MONITOR.
--- NOTE | 2019-08-04 15:06 | NUR ---
PT RESTING ON STRECTHER NO S/S OF DISTRESS OR DISCOMFORT, CALL SUERO WITHIN REACH. REMAINS AT BEDSIDE.
--- NOTE | 2019-08-04 15:26 | NUR ---
REPORT CALLED TO [facility] ROOM 261 AND TELE [address] ASSIGNED.
--- NOTE | 2019-08-04 15:30 | NUR ---
PT TRANSPORTED TO [facility] VIA WHEELCAHIR WITH TELEMETRY ON PT AND AT SIDE. ALL BELONGINGS WITH PATIENT.
--- NOTE | 2019-08-04 15:45 | NUR ---
PT ARRIVES TO ROOM 261 VIA WHEELCHAIR FROM EMERGENCY ROOM, ACCOMPANIED BY HIS AND RHIANNA RN. PT IS ALERT AND ORIENTED X 3, ALTHOUGH IT MAY TAKE A FEW ATTEMPTS TO VERBALIZE. SPEAKS FOR HIM OFTEN. NO COMPLAINT OF CHEST PAIN, NO SHORTNESS OF BREATH. PT AMBULATORY TO SCALE. TEDs APPLIED, WELL HOSPITAL SOCKS. PT ORIENTED TO ROOM AND CALL SUERO, WILL CALL BEFORE TRYING TO GET OOB.
[2019-08-04 16:00] VITALS: BP 121/71
--- NOTE | 2019-08-04 19:00 | NUR ---
RECIEVED REPORT FROM PT FROM DAY NURSE. PT RESTING IN BED WATCHING TV. NO NEEDS AT THIS TIME. CALL SUERO IN REACH. WILL CONTINUE TO MONITOR.
[2019-08-04 20:09] VITALS: BP 105/61
--- NOTE | 2019-08-04 21:25 | NUR ---
PT RESTING QUIETLY IN BED WATCHING TV. ASSESMENT COMPLETED AT THIS TIME. PT ASKED FOR SLEEPING PILL AND HE REFUSED AT THIS TIME. IV FLUSHES WELL. NO NEEDS AT THIS TIME. CALL SUERO IN REACH. WILL CONTINUE TO MONITOR.
--- NOTE | 2019-08-05 00:18 | NUR ---
PT AWAKE IN BED A THIS TIME. REQUESTING SLEEPING PILL. NO OTHER NEEDS AT THIS TIME. WILL CONTINUE TO MONITOR
--- NOTE | 2019-08-05 04:00 | NUR ---
PT IS RESTING QUIETLY IN BED WITH EYES CLOSED. NO S/S OF DISTRESS NOTED. CALL SUERO IN REACH. WILL CONTINUE TO MONITOR.
[2019-08-05 05:18] VITALS: BP 104/62
[2019-08-05 08:00] VITALS: BP 101/55
--- NOTE | 2019-08-05 08:00 | NUR ---
PT AWAKE, ALERT, ORIENTED X 3, BUT IT CAN BE DIFFICULT FOR HIM TO EXPRESS IT CORRECTLY. NO COMPLAINT OF PAIN, NO SHORTNESS OF BREATH.
[2019-08-05 11:04] VITALS: BP 102/54
[2019-08-05] MEDS ORDERED: TAMSULOSIN HCL0.4 MG PO (11:42)
--- NOTE | 2019-08-05 12:15 | NUR ---
DR LEBLANC HAS BEEN IN TO SEE PT, DISCHARGES HIM HOME. PT LEAVES BY WHEELCHAIR IN STABLE CONDITION, ACCOMPANIED BY . PT VERBALIZES UNDERSTANDING OF DC INSTRUCTIONS. RX FLOMAX PROVIDED.
== END 2019-08-05 12:20 | disposition home or self-care (01) ==
LOC: ED 12:02 → ED-I 13:45 → ED 14:02 → MS2 14:03
PROVIDERS: Family Medicine; ADMIT Internal Medicine; ATTEND Internal Medicine
DX: R07.9 Chest pain, unspecified (principal); I13.0 Hypertensive heart and chronic kidney disease with heart failure and stage 1 through stage 4 chronic kidney disease, or unspecified chronic kidney disease; N18.3 Chronic kidney disease, stage 3 (moderate); I50.9 Heart failure, unspecified; I25.5 Ischemic cardiomyopathy; I48.91 Unspecified atrial fibrillation; I25.10 Atherosclerotic heart disease of native coronary artery without angina pectoris; E78.5 Hyperlipidemia, unspecified; Z95.1 Presence of aortocoronary bypass graft; Z95.810 Presence of automatic (implantable) cardiac defibrillator; Z79.01 Long term (current) use of anticoagulants

== ENCOUNTER 2019-09-11 11:06 | Emergency (ER) | payer MEDICARE ==
[~2019-09-11] VITALS: Ht 170.2 cm; Wt 91.4 kg
[~2019-09-11 11:06] MED LIST changes: +TAMSULOSIN HCL0.4 MG PO
[2019-09-11 11:58] LABS: URINE BILIRUBIN - DIPSTICK NEGATIVE (NEGATIVE); URINE BLOOD DIPSTICK NEGATIVE (NEGATIVE); URINE COLOR YELLOW; URINE GLUCOSE - DIPSTICK NEGATIVE (NEGATIVE); URINE KETONE NEGATIVE (NEGATIVE); URINE LEUK ESTERASE NEGATIVE (NEGATIVE); URINE NITRITE - DIPSTICK NEGATIVE (Negative); URINE PROTEIN - DIPSTICK NEGATIVE (NEG-TRACE); URINE SPECIFIC GRAVITY 1.015
[2019-09-11 12:15] LABS: PROTHROMBIN TIME 10.7 SECONDS (9.0-12.5)
[2019-09-11 12:18] LABS: HEMATOCRIT 42.2 % (39.0-50.0); HEMOGLOBIN 13.5 g/dl (14.0-18.0); IMMATURE GRANULOCYTES 0.5 % (0.0-5.0); MEAN CELL VOLUME 94.4 fL CALC (80.0-100.0); MEAN CORPUSCULAR HGB 30.2 pG CALC (26.0-32.0); NEUT# 4.77 thou/uL (1.82-7.42); RED BLOOD COUNT 4.47 mill/uL (4.70-6.10); RED CELL DISTRI WIDTH 14.7 % (11.5-15.5)
[2019-09-11 12:22] LABS: CREATININE 1.4 mg/dL (0.7-1.3); POTASSIUM 4.1 mmol/l (3.5-5.1)
[2019-09-11 12:53] LABS: TSH, 3RD GENERATION 1.59 uIU/mL (0.47 - 4.68)
[2019-09-11 14:56] VITALS: BP 115/60
== END 2019-09-11 14:42 | disposition short-term general hospital (02) ==
LOC: ED 11:06
PROVIDERS: Family Medicine
DX: I63.9 Cerebral infarction, unspecified (principal); R29.700 NIHSS score 0; R20.0 Anesthesia of skin; I11.0 Hypertensive heart disease with heart failure; I50.9 Heart failure, unspecified; I48.91 Unspecified atrial fibrillation; Z95.0 Presence of cardiac pacemaker; Z86.79 Personal history of other diseases of the circulatory system

== ENCOUNTER 2021-09-03 01:30 | Observation (INO) | payer MEDICARE ==
[2021-09-03] VITALS (12 sets, daily range): BP systolic 116–138; BP diastolic 46–91
[~2021-09-03] VITALS: Ht 172.7 cm; Wt 75.0 kg
[~2021-09-03 01:30] MED LIST changes: +ADLT ASA LOW81 MG PO; +VITAMIN C500 M5 PO
[2021-09-03 02:17] LABS: HEMATOCRIT 42.6 % (39.0-50.0); HEMOGLOBIN 13.5 g/dl (14.0-18.0); IMMATURE GRANULOCYTES 0.1 % (0.0-5.0); MEAN CELL VOLUME 94.7 fL CALC (80.0-100.0); MEAN CORPUSCULAR HGB CONC 31.7 g/dL CAL (32.0-36.0); NEUT# 6.47 thou/uL (1.82-7.42); RED BLOOD COUNT 4.5 mill/uL (4.70-6.10); RED CELL DISTRI WIDTH 15.4 % (11.5-15.5)
[2021-09-03 02:23] LABS: URINE BILIRUBIN - DIPSTICK NEGATIVE (NEGATIVE); URINE BLOOD DIPSTICK NEGATIVE (NEGATIVE); URINE COLOR YELLOW; URINE GLUCOSE - DIPSTICK NEGATIVE (NEGATIVE); URINE KETONE NEGATIVE (NEGATIVE); URINE LEUK ESTERASE NEGATIVE (NEGATIVE); URINE PH 5.5 (4.5-8.0); URINE PROTEIN - DIPSTICK 30 mg/dL (NEG-TRACE); URINE SPECIFIC GRAVITY 1.025
[2021-09-03 02:25] LABS: URINE NITRITE - DIPSTICK NEGATIVE (Negative)
[2021-09-03 02:29] LABS: PROTHROMBIN TIME 10.7 SECONDS (9.0-12.5)
[2021-09-03 02:30] LABS: URINE BACTERIA FEW hpf; URINE EPITHELIAL CELLS MODERATE EPI/hpf (0-FEW)
[2021-09-03 02:32] LABS: ALKALINE PHOSPHATASE 86 u/l (38-126); ANION GAP 12 (6-22 (CALC)); BUN 26 mg/dL (8-23); BUN/CREATININE RATIO 20 (12-20 (CALC)); CARBON DIOXIDE 30 mmol/l (22-30); CHLORIDE 103 mmol/l (95-108); CREATININE 1.3 mg/dL (0.7-1.3); GFR 52 ML/MIN (>=60 (CALC)); GFR FOR AFR.AMER. > 60 ML/MIN (>=60 (CALC)); POTASSIUM 4.1 mmol/l (3.5-5.1); SGOT/AST 25 u/l (19-48); SODIUM 140 mmol/l (137-146)
[2021-09-03 02:41] LABS: ALBUMIN 4.3 g/dL (3.2-5.0); TOTAL PROTEIN 7.1 g/dL (6.3-8.2)
[2021-09-04] VITALS (10 sets, daily range): BP systolic 114–154; BP diastolic 52–73
[2021-09-04 05:43] LABS: HEMATOCRIT 40.7 % (39.0-50.0); HEMOGLOBIN 12.8 g/dl (14.0-18.0); IMMATURE GRANULOCYTES 0.3 % (0.0-5.0); MEAN CELL VOLUME 95.1 fL CALC (80.0-100.0); MEAN CORPUSCULAR HGB 29.9 pG CALC (26.0-32.0); MEAN CORPUSCULAR HGB CONC 31.4 g/dL CAL (32.0-36.0); NEUT# 5.06 thou/uL (1.82-7.42); RED BLOOD COUNT 4.28 mill/uL (4.70-6.10); RED CELL DISTRI WIDTH 15.6 % (11.5-15.5)
[2021-09-04 05:58] LABS: ALBUMIN 3.6 g/dL (3.2-5.0); ALKALINE PHOSPHATASE 69 u/l (38-126); ANION GAP 12 (6-22 (CALC)); BILIRUBIN, TOTAL 0.8 mg/dL (0.0-1.4); BUN 27 mg/dL (8-23); BUN/CREATININE RATIO 24 (12-20 (CALC)); CALCULATED LDLCHOLESTEROL 63 mg/dL (62-129 (CALC)); CARBON DIOXIDE 26 mmol/l (22-30); CHLORIDE 106 mmol/l (95-108); CHOLESTEROL HDL RATIO 2.7 (<4.4 (CALC)); CREATININE 1.1 mg/dL (0.7-1.3); GFR > 60 ML/MIN (>=60 (CALC)); GFR FOR AFR.AMER. > 60 ML/MIN (>=60 (CALC)); HDL CHOLESTEROL 47 mg/dL (>=40); SGOT/AST 21 u/l (19-48); SODIUM 140 mmol/l (137-146); TOTAL CHOLESTEROL 129 mg/dl (0-199); TOTAL TRIGLYCERIDES 93 mg/dl (30-149); VLDL CHOLESTROL 19 mg/dl (0-38 (CALC))
[2021-09-04] MEDS ORDERED: CLOPIDOGREL75 MG PO (09:29)
== END 2021-09-04 13:15 ==
LOC: ED 01:30 → ED-I 05:20 → ED 06:03 → ICU 06:04
PROVIDERS: Emergency Medicine; Internal Medicine; ADMIT Internal Medicine; ATTEND Internal Medicine
DX: R42 Dizziness and giddiness (principal); R26.81 Unsteadiness on feet; I65.02 Occlusion and stenosis of left vertebral artery; I13.0 Hypertensive heart and chronic kidney disease with heart failure and stage 1 through stage 4 chronic kidney disease, or unspecified chronic kidney disease; I50.9 Heart failure, unspecified; N18.30 Chronic kidney disease, stage 3 unspecified; I48.91 Unspecified atrial fibrillation; R47.1 Dysarthria and anarthria; I25.5 Ischemic cardiomyopathy; I25.10 Atherosclerotic heart disease of native coronary artery without angina pectoris; M10.9 Gout, unspecified; E78.5 Hyperlipidemia, unspecified; Z87.440 Personal history of urinary (tract) infections; Z86.73 Personal history of transient ischemic attack (TIA), and cerebral infarction without residual deficits; Z95.810 Presence of automatic (implantable) cardiac defibrillator; Z20.822 Contact with and (suspected) exposure to COVID-19
CPT/HCPCS: Q9967

== ENCOUNTER 2021-12-13 16:23 | Emergency (ER) | payer MEDICARE ==
[~2021-12-13] VITALS: Ht 172.7 cm; Wt 76.0 kg
[~2021-12-13 16:23] MED LIST changes: +CLOPIDOGREL75 MG PO
[2021-12-13 16:58] LABS: URINE BILIRUBIN - DIPSTICK NEGATIVE (NEGATIVE); URINE BLOOD DIPSTICK LARGE (NEGATIVE); URINE COLOR RED; URINE GLUCOSE - DIPSTICK NEGATIVE (NEGATIVE); URINE KETONE TRACE mg/dL (NEGATIVE); URINE LEUK ESTERASE TRACE (NEGATIVE); URINE NITRITE - DIPSTICK POSITIVE (Negative); URINE PROTEIN - DIPSTICK 30 mg/dL (NEG-TRACE); URINE SPECIFIC GRAVITY 1.015
[2021-12-13 17:00] LABS: HEMATOCRIT 44.3 % (39.0-50.0); HEMOGLOBIN 13.9 g/dl (14.0-18.0); IMMATURE GRANULOCYTES 0.3 % (0.0-5.0); MEAN CELL VOLUME 96.7 fL CALC (80.0-100.0); MEAN CORPUSCULAR HGB 30.3 pG CALC (26.0-32.0); MEAN CORPUSCULAR HGB CONC 31.4 g/dL CAL (32.0-36.0); NEUT# 4.8 thou/uL (1.82-7.42); RED BLOOD COUNT 4.58 mill/uL (4.70-6.10); RED CELL DISTRI WIDTH 14.4 % (11.5-15.5)
[2021-12-13 17:04] LABS: URINE RBC TNTC RBC/hpf (0-5)
[2021-12-13 17:16] LABS: ALBUMIN 4.4 g/dL (3.2-5.0); CREATININE 2.2 mg/dL (0.7-1.3); TOTAL PROTEIN 7.5 g/dL (6.3-8.2)
[2021-12-13 17:18] LABS: ACT PARTIAL THROMBO TIME 29.1 SECONDS (20.0-32.5); PROTHROMBIN TIME 10.7 SECONDS (9.0-12.5)
[2021-12-13] MEDS ORDERED: CARVEDILOL25 MG PO (17:47)
[2021-12-13] MEDS ORDERED: VITAMIN D5000 UNI1 PO (17:47)
[2021-12-13] MEDS ORDERED: PRAVASTATIN SOD20 MG PO (17:48)
[2021-12-13] MEDS ORDERED: KEFLEX500 MG PO (18:56)
[2021-12-13 19:20] VITALS: BP 119/55
== END 2021-12-13 19:20 | disposition home or self-care (01) ==
LOC: ED 16:23
DX: R31.9 Hematuria, unspecified (principal); N39.0 Urinary tract infection, site not specified; J18.9 Pneumonia, unspecified organism; I11.0 Hypertensive heart disease with heart failure; I50.9 Heart failure, unspecified; I48.91 Unspecified atrial fibrillation; N40.0 Benign prostatic hyperplasia without lower urinary tract symptoms; Z79.82 Long term (current) use of aspirin; Z95.1 Presence of aortocoronary bypass graft; Z95.0 Presence of cardiac pacemaker; Z86.79 Personal history of other diseases of the circulatory system

== ENCOUNTER 2022-05-13 12:36 | Emergency (ER) | payer MEDICARE ==
[~2022-05-13] VITALS: Ht 175.3 cm; Wt 88.6 kg
[~2022-05-13 12:36] MED LIST changes: +CARVEDILOL25 MG PO; +KEFLEX500 MG PO; +PRAVASTATIN SOD20 MG PO; +VITAMIN D5000 UNI1 PO
[2022-05-13 12:46] VITALS: BP 118/59
[2022-05-13 13:00] VITALS: BP 108/62
[2022-05-13 14:01] VITALS: BP 127/68
[2022-05-13 14:30] VITALS: BP 124/61
[2022-05-13] MEDS ORDERED: CEPHALEXIN500 MG PO (14:34)
[2022-05-13 14:39] VITALS: BP 124/61
== END 2022-05-13 14:46 | disposition home or self-care (01) ==
LOC: ED 12:36
DX: L03.116 Cellulitis of left lower limb (principal); I11.0 Hypertensive heart disease with heart failure; I50.9 Heart failure, unspecified; I48.91 Unspecified atrial fibrillation; Z95.0 Presence of cardiac pacemaker; M79.605 Pain in left leg

== ENCOUNTER 2022-09-01 16:57 | Inpatient (IN) | payer MEDICARE ==
[~2022-09-01] VITALS: Ht 175.3 cm; Wt 102.0 kg
[2022-09-01] VITALS (11 sets, daily range): BP systolic 100–127; BP diastolic 47–57
[2022-09-01 17:27] LABS: MEAN CORPUSCULAR HGB 23.9 pG CALC (26.0-32.0); MEAN CORPUSCULAR HGB CONC 29.5 g/dL CAL (32.0-36.0); NEUT# 4.88 thou/uL (1.82-7.42); RED BLOOD COUNT 3.09 mill/uL (4.70-6.10); RED CELL DISTRI WIDTH 17.1 % (11.5-15.5)
[2022-09-01 17:29] LABS: HEMATOCRIT 25.1 % (39.0-50.0); HEMOGLOBIN 7.4 g/dl (14.0-18.0); MEAN CELL VOLUME 81.2 fL CALC (80.0-100.0)
--- NOTE | 2022-09-01 17:33 | NUR ---
PT ESCORTED VIA WHEELCHAIR TO ROOM 15 FOR EVAL OF "LOW HGB" PER PRIMARY CARE AND POSSIBLE "BRAIN BLEED". PT ALERT AND ORIENTED X3 UPON ARRIVAL AND REPORTS WEAKNESS X 1 WEEK
[2022-09-01 17:41] LABS: ALBUMIN 4.2 g/dL (3.2-5.0); BILIRUBIN, TOTAL 0.6 mg/dL (0.0-1.4); CREATININE 1.6 mg/dL (0.7-1.3); TOTAL PROTEIN 6.2 g/dL (6.3-8.2)
[2022-09-01 17:43] LABS: POTASSIUM 5.2 mmol/l (3.5-5.1)
[2022-09-01 17:46] LABS: INTERNATIONAL NORMALIZED RATIO 1.1 RATIO (0.7-1.3); PROTHROMBIN TIME 10.7 SECONDS (9.0-12.5)
[2022-09-01 21:01] LABS: URINE BILIRUBIN - DIPSTICK NEGATIVE (NEGATIVE); URINE BLOOD DIPSTICK NEGATIVE (NEGATIVE); URINE COLOR YELLOW; URINE GLUCOSE - DIPSTICK NEGATIVE (NEGATIVE); URINE KETONE NEGATIVE (NEGATIVE); URINE LEUK ESTERASE NEGATIVE (NEGATIVE); URINE PROTEIN - DIPSTICK NEGATIVE (NEG-TRACE); URINE UROBILINOGEN - DIPSTICK 0.2 E.U./dL (0.2)
[2022-09-01 21:06] LABS: URINE NITRITE - DIPSTICK NEGATIVE (Negative)
[2022-09-02] VITALS (12 sets, daily range): BP systolic 109–130; BP diastolic 44–65
[2022-09-02 00:41] LABS: HEMATOCRIT 22.6 % (39.0-50.0)
[2022-09-02 01:36] LABS: HEMOGLOBIN 6.7 g/dl (14.0-18.0)
[2022-09-02 02:21] LABS: HEMOGLOBIN 6.8 g/dl (14.0-18.0)
--- NOTE | 2022-09-02 04:57 | NUR ---
PATIENT ARRIVED ON FLOOR AT 2300 FROM ER PATIENT HAD DECLINE IN HEMAGLOBIN FROM 7.4 TO 6.8. ONE UNIT OF BLOOD TRANSFUSED
--- NOTE | 2022-09-02 06:06 | NUR ---
BLOOD FINISHED RE DRAW ORDERED
--- NOTE | 2022-09-02 06:17 | NUR ---
blood transfusion complete
--- NOTE | 2022-09-02 08:11 | NUR ---
RECIEVED REPORT. PT A/OX3. RESPIRATIONS EVEN AND UNLABORED ON ROOM AIR. LUNG SOUNDS CLEAR. HEART RHYTHM NORMAL WITH TELE IN PLACE, PACED PER ER MONITORING. BOWEL SOUNDS ACTIVE, LBM 08/31/22 PER PT. #20G LEFT THUMB PATENT.NPO STATUS REMAINS. PT DENIES OF ANY PAINS OR DISCOMFORTS AT THIS TIME. ALL SAFTEY PRECAUTIONS ARE IN PLACE WITH CALL LIGHT IN REACH
[2022-09-02 08:47] LABS: HEMATOCRIT 27.3 % (39.0-50.0); HEMOGLOBIN 8.3 g/dl (14.0-18.0); IMMATURE GRANULOCYTES 0.1 % (0.0-5.0); MEAN CELL VOLUME 81.5 fL CALC (80.0-100.0); MEAN CORPUSCULAR HGB 24.8 pG CALC (26.0-32.0); MEAN CORPUSCULAR HGB CONC 30.4 g/dL CAL (32.0-36.0); NEUT# 5.65 thou/uL (1.82-7.42); RED BLOOD COUNT 3.35 mill/uL (4.70-6.10); RED CELL DISTRI WIDTH 16.1 % (11.5-15.5)
[2022-09-02 09:26] LABS: ALBUMIN 3.9 g/dL (3.2-5.0); CREATININE 1.5 mg/dL (0.7-1.3); POTASSIUM 4.3 mmol/l (3.5-5.1)
[2022-09-02 09:27] LABS: BILIRUBIN, TOTAL 2.1 mg/dL (0.0-1.4)
--- NOTE | 2022-09-02 10:30 | NUR ---
PACE MAKER INTERIGATED BY ROSALEE ALVARADO. PT TRANSPORTED VIA WHEELCHAIR TO [facility]
[2022-09-02 12:32] LABS: HEMATOCRIT 27.6 % (39.0-50.0); HEMOGLOBIN 8.4 g/dl (14.0-18.0)
--- NOTE | 2022-09-02 13:57 | NUR ---
PT RESTING IN SEMI FOWLERS POSITION. RESPIRATIONS EVEN AND UNLABORED ON ROOM AIR. TELE MONITORING IN PLACE. #20G LEFT THUMB INFUSING WITH PROTONIX DRIP. #20G RAC PATENT.PT INFORMED OF STOOL SAMPLE, VERBLAIZED UNDERSTANDING BUT HAD PRIOR BM. PT STARTED ON CLEAR LIQUID DIET. PT AND EDUCATED ON TREATMENT PLAN, VERBLAIZED UNDERSTANDING. ALL SAFTEY PRECAUTIONS ARE IN PLACE WITH CALL LIGHT IN REACH.
--- NOTE | 2022-09-02 17:36 | NUR ---
BLOOD TRANSFUSION STARTED AT THIS TIME. VSS. #20G RAC PATENT. PT EDUCATED ON S/S OF REACTION. VERBALIZED UNDERSTANDING.
--- NOTE | 2022-09-02 17:51 | NUR ---
VITALS COMPLETED, REMAINS STABLE. NO S/S OF REACTION. #20G RAC PATENT. NEW #22G RH STARTED, PROTONIX INFUSING WITH EASE. TELE MONITORING IN PLACE. PT DENIES OF ANY NEEDS. ALL SAFTEY PRECAUTIONS ARE IN PLACE WITH CALL LIGHT IN REACH
--- NOTE | 2022-09-02 20:00 | NUR ---
RECEIVED REPORT FROM DAVID LUGO. PT SITTING ON BED LOW FOWLERS: A&O X3. EVEN AND UNLABORED RESPIRATIONS; CLEAR LUNG SOUNDS UPON AUSCULTATION. TELEMETRY IN PLACE. ACTIVE BOWEL SOUNDS X4 QUADRANTS. REMOVED IV: # 20 RT AC, PT C/O PAIN AND INFILTRATION NOTED. BLOOD TRANSFUSION ON #22 RT HAND INFUSING AT THIS TIME, HEALTHY AND PATENT. SAFETY PRECAUTIONS IN PLACE WITH CALL LIGHT IN REACH.
--- NOTE | 2022-09-02 20:27 | NUR ---
BLOOD TRANFUSION ENDED @ 2026. VS STABLE AND NO SIGNS OF REACTION. NO DISTRESS OR PAIN NOTED. PT ASSISTED TO BATHROOM: MYESHA PRESSLEY. PT BACK ON BED. SAFETY PRECAUTIONS IN PLACE WITH CALL LIGHT IN REACH.
[2022-09-02 21:43] LABS: HEMATOCRIT 33.1 % (39.0-50.0); HEMOGLOBIN 10.3 g/dl (14.0-18.0)
[2022-09-03] VITALS (11 sets, daily range): BP systolic 85–116; BP diastolic 34–57
--- NOTE | 2022-09-03 00:15 | NUR ---
PT SITTING ON RECLINER. NO DISTRESS OR PAIN NOTED. IV SITE HEALTHY AND PATENT, INFUSING PROTONIX PER ORDER. SAFETY PRECAUTIONS IN PLACE WITH CALL LIGHT IN REACH.
--- NOTE | 2022-09-03 01:56 | NUR ---
PT SITTING ON RECLINER. PT PULL IV OUT # 22 RT HAND, CATHETER INTACT. NEW IV PLACED BY ROSALEE MARTINS/TRANSPORTATION ASSISTANT; # 22 LEFT HAND WITH GOOD BLOOD RETURN, PT TOLERATED WELL. SAFETY PRECAUTIONS IN PLACE WITH CALL LIGHT IN REACH.
--- NOTE | 2022-09-03 04:27 | NUR ---
PT SITTING ON RECLINER. NO DISTRESS OR PAIN NOTED. IV SITE HEALTHY AND PATENT, INFUSING PROTONIX PER ORDER. NO NEEDS AT THIS TIME. SAFETY PRECAUTIONS IN PLACE WITH CALL LIGHT IN REACH.
[2022-09-03 05:36] LABS: HEMATOCRIT 32.5 % (39.0-50.0); HEMOGLOBIN 10.1 g/dl (14.0-18.0); MEAN CELL VOLUME 81.5 fL CALC (80.0-100.0); MEAN CORPUSCULAR HGB 25.3 pG CALC (26.0-32.0); MEAN CORPUSCULAR HGB CONC 31.1 g/dL CAL (32.0-36.0); RED BLOOD COUNT 3.99 mill/uL (4.70-6.10); RED CELL DISTRI WIDTH 16.2 % (11.5-15.5)
[2022-09-03 05:39] LABS: ALBUMIN 4.1 g/dL (3.2-5.0); BILIRUBIN, TOTAL 1.6 mg/dL (0.0-1.4); CREATININE 1.5 mg/dL (0.7-1.3); MAGNESIUM 2.4 mg/dL (1.6-2.3); TOTAL PROTEIN 6.1 g/dL (6.3-8.2)
--- NOTE | 2022-09-03 08:00 | NUR ---
Patient resting in recliner, A&0x4, no new complaints. Vitals WNL.
--- NOTE | 2022-09-03 10:00 | NUR ---
DR CROUCH CALLED DR GARCIA PERSONALLY ON THIS CONSULTATION. FAXED OVER PACEMAKER REPORT FROM PT.
--- NOTE | 2022-09-03 12:00 | NUR ---
Patient stable with no complaints of dizziness or lightheadedness, is at bedside, states she will help patient wash up in the restroom.
[2022-09-03 15:55] LABS: HEMATOCRIT 32.6 % (39.0-50.0); HEMOGLOBIN 9.9 g/dl (14.0-18.0)
--- NOTE | 2022-09-03 16:00 | NUR ---
Patient in recliner, at bedside. Patient A&Ox4 with no new complaints at this time.
--- NOTE | 2022-09-03 20:20 | NUR ---
PT SITTING ON BED: A&O X3. EVEN AND UNLABORED RESPIRATIONS; CLEAR LUNG SOUNDS UPON AUSCULTATION ON [place]ARY[place]. TELEMETRY IN PLACE. IV SITE HEALTHY AND PATENT. ACTIVE BOWEL SOUNDS X4 QUADRANTS. NO DISTRESS NOTED. PT DENIES PAIN AT THIS TIME. SAFETY PRECAUTIONS IN PLACE WITH CALL LIGHT IN REACH.
[2022-09-04 00:35] VITALS: BP 117/55
--- NOTE | 2022-09-04 00:40 | NUR ---
PT RESTING WITH EYES CLOSED. NO DISTRESS OR PAIN NOTED. IV FOUND ON FLOOR, PT STATED: " I PULLED IT OUT ON ACCIDENT". CATHETER IS INTACT. NEW IV SITE PLACE: #20 RT UPPER ARM WITH GOOD BLOOD RETURN, PT TOLERATED WELL. SAFETY PRECAUTIONS IN PLACE WITH CALL LIGHT IN REACH.
--- NOTE | 2022-09-04 04:10 | NUR ---
PT SITTING ON RECLINER. NO SIGNS OF DISTRESS NOTED. PT DENIES PAIN AT THIS TIME. IV SITE HEALTHY AND PATENT, INFUSING PTOTONIX DRIP PER ORDER. TELEMETRY IN PLACE. SAFETY PRECAUTIONS IN PLACE WITH CALL LIGHT IN REACH.
[2022-09-04 04:23] VITALS: BP 103/47
[2022-09-04 05:42] LABS: HEMATOCRIT 31.7 % (39.0-50.0); HEMOGLOBIN 10.1 g/dl (14.0-18.0); MEAN CELL VOLUME 81.5 fL CALC (80.0-100.0); MEAN CORPUSCULAR HGB CONC 31.9 g/dL CAL (32.0-36.0); RED BLOOD COUNT 3.89 mill/uL (4.70-6.10); RED CELL DISTRI WIDTH 16.8 % (11.5-15.5)
[2022-09-04 05:58] LABS: CREATININE 1.5 mg/dL (0.7-1.3); POTASSIUM 4.4 mmol/l (3.5-5.1)
[2022-09-04 06:43] VITALS: BP 116/50
[2022-09-04 07:58] VITALS: BP 116/50
[2022-09-04 09:24] VITALS: BP 116/50
--- NOTE | 2022-09-04 09:44 | NUR ---
DR THAKKAR IN SPEAKING WITH PT. AT BEDSIDE.
[2022-09-04] MEDS ORDERED: VITAMIN B-121000 MCG PO (09:49)
[2022-09-04] MEDS ORDERED: PROTONIX40 M2 PO (09:50)
--- NOTE | 2022-09-04 10:37 | NUR ---
DISCHARGE ORDERS RECIEVED. IV IRON INFUSING AT THIS TIME.
--- NOTE | 2022-09-04 11:22 | NUR ---
DISCHARGE INSTRUCTIONS GIVEN TO PT AND SPOUSE. PIV REMOVED WITHOUT ISSUE PT TOLERATED WELL. TRANSFERRED TO WHEELCHAIR TRANSPORTED BY STAFF OUT OF UNIT.
== END 2022-09-04 11:18 | DRG 812 ==
LOC: ED 16:57 → ED-I 18:50 → ED 19:21 → MS2 19:22
PROVIDERS: Family Medicine; Nurse Practitioner; ADMIT Internal Medicine; ATTEND Internal Medicine
PROC: 30233N1 Transfusion of Nonautologous Red Blood Cells into Peripheral Vein, Percutaneous Approach (ICD-10-PCS; principal; 2022-09-02)
PROC: 30233N1 Transfusion of Nonautologous Red Blood Cells into Peripheral Vein, Percutaneous Approach (ICD-10-PCS; 2022-09-02)
DX: D62 Acute posthemorrhagic anemia (principal); K92.2 Gastrointestinal hemorrhage, unspecified; I13.0 Hypertensive heart and chronic kidney disease with heart failure and stage 1 through stage 4 chronic kidney disease, or unspecified chronic kidney disease; I50.22 Chronic systolic (congestive) heart failure; N18.30 Chronic kidney disease, stage 3 unspecified; K56.41 Fecal impaction; I25.10 Atherosclerotic heart disease of native coronary artery without angina pectoris; I25.5 Ischemic cardiomyopathy; I48.91 Unspecified atrial fibrillation; E78.00 Pure hypercholesterolemia, unspecified; N40.0 Benign prostatic hyperplasia without lower urinary tract symptoms; Z86.73 Personal history of transient ischemic attack (TIA), and cerebral infarction without residual deficits; Z95.1 Presence of aortocoronary bypass graft; Z95.810 Presence of automatic (implantable) cardiac defibrillator; Z79.01 Long term (current) use of anticoagulants; Z87.440 Personal history of urinary (tract) infections; Z20.822 Contact with and (suspected) exposure to COVID-19
CPT/HCPCS: J1756; J3420; P9016; S0164